=== PATIENT | male | born 1970 | race Caucasian/White ===

== ENCOUNTER 2020-09-16 13:47 | Outpatient (REF) | payer OTHER, SELFPAY ==
[2020-09-16 14:38] LABS: Influenza A PCR NEGATIVE (Negative); Influenza B PCR NEGATIVE (Negative); Resp Syncy Virus RNA Qual PCR NEGATIVE (Negative); SARS COV2 PCR INHOUSE NEGATIVE (Negative)
== END 2020-09-16 13:48 | disposition home or self-care (01) ==
LOC: HO.LNP 13:47
PROVIDERS: Visit Provider Family Medicine
DX: Z20.822 Contact with and (suspected) exposure to COVID-19 (principal); R50.9 Fever, unspecified
CPT/HCPCS: 0241U

== ENCOUNTER → 2021-02-02 13:20 | Outpatient (BNVA) | payer SELFPAY | PROVIDERS: PCP Internal Medicine; Visit Provider Physician Assistant Medical | DX: Z02.79 Encounter for issue of other medical certificate (principal) ==

== ENCOUNTER 2024-09-18 08:00 | Outpatient (REF) | payer OTHER, SELFPAY ==
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
[2024-09-18 14:53] LABS: Uric Acid 9.2 mg/dL (3.4-7.0)
== END 2024-09-18 08:01 | disposition home or self-care (01) ==
LOC: HO.MANLDS 08:00
PROVIDERS: Visit Provider Physician Assistant
DX: M10.9 Gout, unspecified (principal)
CPT/HCPCS: 36415; 84550